=== PATIENT | male | born 1960 | race Caucasian/White ===

== ENCOUNTER → 2018-07-22 | Outpatient (CLI) | payer OTHER | LOC: CAT 07-11 11:33 | DX: I77.810 Thoracic aortic ectasia (principal); D71 Functional disorders of polymorphonuclear neutrophils; I25.10 Atherosclerotic heart disease of native coronary artery without angina pectoris; N28.89 Other specified disorders of kidney and ureter; M47.815 Spondylosis without myelopathy or radiculopathy, thoracolumbar region; R04.2 Hemoptysis ==

== ENCOUNTER → 2018-07-31 | Outpatient (CLI) | payer OTHER ==
--- NOTE | ~2018-07-31 | 2DMMODE ---
[facility] [employer] ([employer] [place] [address] 2 D/M-MODE ECHOCARDIOGRAM Name: OG RUIZ Room #: REG [facility]#: [id number] Admission: 07/31/18 Attend Phys: Pablo Bray MD Discharge: Date of : 62 Date of Service: 07/31/18 1551 Report #: [id number] THIS REPORT FOR: //name// APPROVED REPORT Study performed: 07/31/2018 15:00:13 EXAM: Comprehensive 2D, Doppler, and color-flow Echocardiogram Patient Location: Out-Patient Status: routine BSA: 1.85 HR: 69 bpm BP: 136/80 mmHg Rhythm: NSR Other Information Study Quality: Adequate Indications Pulmonary embolism, short of breath. Hx: A-fib, COPD, HTN, current tobacco abuse. 2D Dimensions RVDd: 40.27 mm IVSd: 9.59 (7-11mm) LVOT Diam: 21.25 (18-24mm) LVDd: 46.30 mm PWd: 9.87 (7-11mm) LVDs: 33.25 (25-40mm) Aortic Root: 36.06 mm Volumes Left Atrial Volume (Systole) Single Plane 4CH: 37.89 mL Single Plane 2CH: 48.53 mL LA ESV Index: 25.00 mL/m2 Aortic Valve AoV Peak Caio.: 1.19 m/s AO Peak Gr.: 5.62 mmHg LVOT Max P.09 mmHg LVOT Max V: 1.13 m/s MARY BETH Vmax: 3.37 cm2 Mitral Valve E/A Ratio: 0.9 MV Decel. Time: 277.79 ms [facility] [address] [place] [address] 2 D/M-MODE ECHOCARDIOGRAM Name: OG RUIZ Room #: REG [facility]#: [id number] Admission: 07/31/18 Attend Phys: Pablo Bray MD Discharge: Date of : 62 Date of Service: 07/31/18 1551 Report #: [id number] MV E Max Caio.: 0.54 m/s MV A Caio.: 0.58 m/s MV PHT: 80.56 ms IVRT: 83.04 ms Pulmonary Valve PV Peak Caio.: 0.90 m/s PV Peak Gr.: 3.27 mmHg Pulmonary Vein P Vein S: 0.74 m/s P Vein D: 0.34 m/s P Vein S/D Ratio: 2.18 Tricuspid Valve TR Peak Caio.: 2.74 m/s RAP Estimate: 5.00 mmHg TR Peak Gr.: 30.07 mmHg PA Pressure: 35.00 mmHg Left Ventricle The left ventricle is normal size. There is normal LV segmental wall motion. There is normal left ventricular wall thickness. Left ventricular systolic function is normal. LVEF is 55%. Mild diastolic dysfunction is present (impaired relaxation pattern). Right Ventricle The right ventricle is normal size. The right ventricular systolic function is normal. Atria The left atrium size is normal. The right atrium size is normal. Aortic Valve The aortic valve is normal in structure. Trace aortic regurgitation. There is no aortic valvular stenosis. Mitral Valve The mitral valve is normal in structure. Mild mitral regurgitation. No evidence of mitral valve stenosis. Tricuspid Valve The tricuspid valve is normal in structure. Mild tricuspid regurgitation. Estimated PAP is 35mmHg. Pulmonic Valve Pulmonic valve is not well visualized. Trace pulmonic [facility] [address] [place] [address] 2 D/M-MODE ECHOCARDIOGRAM Name: OG RUIZ Room #: REG [facility]#: [id number] Admission: 07/31/18 Attend Phys: Pablo Bray MD Discharge: Date of : 62 Date of Service: 07/31/18 1551 Report #: [id number] regurgitation. Great Vessels The aortic root is normal in size. Ascending aorta is not well visualized. IVC is normal in size and collapses >50% with inspiration. Pericardium There is no pericardial effusion. <Conclusion> The left ventricle is normal size. LVEF is 55%. The aortic valve is normal in structure. Trace aortic regurgitation. The mitral valve is normal in structure. Mild mitral regurgitation. The tricuspid valve is normal in structure. Mild tricuspid regurgitation. Estimated PAP is 35mmHg. Pulmonic valve is not well visualized. Trace pulmonic regurgitation. There is no pericardial effusion. Ascending aorta is not well visualized. <ELECTRONICALLY SIGNED> By: Emanuel Levy MD 07/31/18 [phone] Emanuel Levy MD /INF
== END ==
LOC: CV 08:01
DX: I08.1 Rheumatic disorders of both mitral and tricuspid valves (principal); I82.411 Acute embolism and thrombosis of right femoral vein; I48.91 Unspecified atrial fibrillation; J44.9 Chronic obstructive pulmonary disease, unspecified; I10 Essential (primary) hypertension; R91.1 Solitary pulmonary nodule; F17.200 Nicotine dependence, unspecified, uncomplicated

== ENCOUNTER → 2018-08-12 | Outpatient (CLI) | payer OTHER | LOC: CAT 15:01 | DX: J98.4 Other disorders of lung (principal); R91.1 Solitary pulmonary nodule ==

== ENCOUNTER → 2018-08-16 | Outpatient (CLI) | payer OTHER | LOC: MRI 06:55 | DX: D68.9 Coagulation defect, unspecified (principal); R51 Headache ==

== ENCOUNTER → 2018-10-01 | Outpatient (CLI) | payer OTHER | LOC: CAT 11:58 | DX: J44.9 Chronic obstructive pulmonary disease, unspecified (principal); I25.10 Atherosclerotic heart disease of native coronary artery without angina pectoris; R59.9 Enlarged lymph nodes, unspecified; K76.0 Fatty (change of) liver, not elsewhere classified; L92.8 Other granulomatous disorders of the skin and subcutaneous tissue; I26.99 Other pulmonary embolism without acute cor pulmonale ==

== ENCOUNTER 2018-12-14 15:31 | Emergency (ER) | payer OTHER ==
[~2018-12-14] VITALS: Ht 175.3 cm; Wt 72.6 kg
[2018-12-14 16:19] LABS: HEMOGLOBIN 18.4 gm/dL (14.0-18.0); MCH 35.3 pg (26.0-34.0); MCHC 34.7 g/dL (28.0-37.0); MCV 101.7 fL (80.0-100.0); RBC 5.21 mil/uL (4.50-6.00); RDW 13.9 % (10.5-14.5); WBC 12.7 thou/uL (4.0-11.0)
[2018-12-14 16:25] LABS: ANION GAP 10 mmol/L (7-16); BUN 7 mg/dL (7-18); CALCIUM 9.9 mg/dL (8.5-10.1); CHLORIDE 102 mmol/L (98-107); CO2 28 mmol/L (21-32); CREATININE 1.1 mg/dL (0.7-1.3); GLUCOSE 136 mg/dL (74-106); POTASSIUM 4.3 mmol/L (3.5-5.1); SODIUM 140 mmol/L (136-145)
[2018-12-14 16:34] LABS: TROPONIN-I <0.06 ng/mL (<0.06)
[2018-12-14 19:10] VITALS: BP 169/99
--- NOTE | 2018-12-15 10:34 | EKG ---
[place] [address] [facility] [place] [address] ELECTROCARDIOGRAM REPORT Name: OG RUIZ [id number] ������������������ Admission: 12/14/18 ������������������ Attend Phys: Discharge: 12/14/18 ������������������ Date of : 62 Report #: [id number] ����������������������������������������������������������������� [id number] THIS REPORT FOR: //name// [facility] ED Test Date: 2018-12-14 Test Time: 16:05:03 Pat Name: OG RUIZ Department: Room: Gender: M Trades Helper: : 1960 Requested By: Sukhdeep Farmer Order Number: [id number] MD: Josué Alvarez Measurements Intervals [place] Rate: 89 P: 58 HI: 150 QRS: -37 QRSD: 90 T: 36 QT: 386 QTc: 470 Interpretive Statements Sinus rhythm Probable left atrial enlargement Left axis deviation Compared to ECG 03/02/2009 12:37:17 Left-axis deviation now present Electronically Signed On 12-15-2018 10:34:14 CDT by Josué Alvarez [email or web address] ��������������������������������������������� <ELECTRONICALLY SIGNED> ���������������������������������������� By: Josué Alvarez MD ��������������������������������������������� 12/15/18 1034 1605 1605 MD MAEVE Christianson
== END 2018-12-14 19:10 | disposition short-term general hospital (02) ==
LOC: ER 15:31
PROVIDERS: Emergency Medicine
DX: S06.5X0A Traumatic subdural hemorrhage without loss of consciousness, initial encounter (principal); M79.632 Pain in left forearm; I48.91 Unspecified atrial fibrillation; F17.210 Nicotine dependence, cigarettes, uncomplicated; Z79.01 Long term (current) use of anticoagulants; W18.30XA Fall on same level, unspecified, initial encounter; Y93.89 Activity, other specified; Y92.89 Other specified places as the place of occurrence of the external cause; Y99.8 Other external cause status

== ENCOUNTER → 2019-01-27 | Outpatient (CLI) | payer OTHER | LOC: MRI 10:42 | DX: S06.9X9D Unspecified intracranial injury with loss of consciousness of unspecified duration, subsequent encounter (principal); I67.82 Cerebral ischemia; I25.10 Atherosclerotic heart disease of native coronary artery without angina pectoris; R91.1 Solitary pulmonary nodule; J98.4 Other disorders of lung; K86.89 Other specified diseases of pancreas; K31.89 Other diseases of stomach and duodenum; X58.XXXD Exposure to other specified factors, subsequent encounter ==

== ENCOUNTER → 2019-06-02 | Outpatient (CLI) | payer OTHER ==
[2019-06-02 12:58] LABS: CALCIUM 9.3 mg/dL (8.5-10.1); CREATININE 0.9 mg/dL (0.7-1.3); POTASSIUM 3.9 mmol/L (3.5-5.1)
== END ==
LOC: ULTRA 10:45 → CAT 10:45 → RAD 10:45
PROVIDERS: Internal Medicine Pulmonary Disease
DX: J43.9 Emphysema, unspecified (principal); I25.10 Atherosclerotic heart disease of native coronary artery without angina pectoris; M79.605 Pain in left leg; I77.810 Thoracic aortic ectasia; N20.0 Calculus of kidney; J98.4 Other disorders of lung; D73.89 Other diseases of spleen

== ENCOUNTER 2019-09-10 18:28 | Inpatient (IN) | payer OTHER ==
[~2019-09-10] VITALS: Ht 177.8 cm; Wt 72.6 kg
--- NOTE | ~2019-09-10 | HC ---
[facility] [place] [address] CONSULTATION Name: OG RUIZ Room #: 352-P [facility] IN M.R.#: [id number] Admission: 09/10/19 Attend Phys: Ivan Baldwin MD Discharge: 09/11/19 Date of : 62 Report #: [id number] THIS REPORT FOR: //name// CC: Ivan Holley DATE OF SERVICE: 09/11/2019 IDENTIFYING INFORMATION: A 59-year-old male. HISTORY OF PRESENT ILLNESS: The patient was admitted with some severe abdominal pain. It appears he may be awaiting transfer to [facility] for vascular procedure. He has a superior mesenteric artery thrombosis. He is quite uncomfortable. He does acknowledge some alcohol use on Sunday. It appears there has been some abuse misuse at times, but he is not alcohol dependent. He is hopeful to stop using alcohol. He has been depressed, having gone through a traumatic brain injury and also suffered loss of multiple family members over the last couple of years. Some of these deaths have been unexpected. The patient notes that his mood, anxiety, energy, and motivation have all been affected, but he has not felt suicidal. PAST PSYCHIATRIC HISTORY: The current episode encompasses multiple losses of family members and recovery from a traumatic brain injury. Prior to this, it does not seem he suffered from depression or anxiety. He was recently started on alprazolam and citalopram by his primary care physician, but his points out "he really does not like taking medications." SUBSTANCE USE HISTORY: He is on Ativan detox, but he tells me he did not last drink since Sunday. Seems there is some alcohol use disorder and alcohol abuse, especially with respect to self-medication for depression, anxiety and stress, but he is not currently alcohol dependent. ALLERGIES: No known medication allergies. PAST MEDICAL HISTORY: Superior mesenteric artery thrombosis, traumatic brain injury. He recovered from this enough to return to work. SOCIAL HISTORY: He is , but has only been a year or so, but had been dating longer than that and she has been a close friend of his for a few decades. CURRENT MEDICATIONS: Include heparin, thiamine, vitamin, Ativan detox. MENTAL STATUS EXAM: male, casually dressed. Depressed mood. Restricted affect, decreased speech. No suicidal ideation, no homicidal ideation, no hallucinations, no delusions. Insight and judgment fair. [facility] [address] [place] [address] CONSULTATION Name: OG RUIZ Room #: 352-P [facility] IN M.R.#: [id number] Admission: 09/10/19 Attend Phys: Ivan Baldwin MD Discharge: 09/11/19 Date of : 62 Report #: [id number] DIAGNOSES: Major depressive disorder, single episode, severe alcohol use disorder. RECOMMENDATIONS: The patient will benefit from resuming antidepressants. I did recommend that a low dose of benzodiazepine can be quite useful for peak levels of anxiety and can give him relief. Since he is not able to take p.o., lorazepam makes good sense for anxiety, though blood alcohol level was not recorded upon admission and if he really has not drank since Sunday, it is unlikely he will actually have any withdrawals. Provide supportive therapy and education. I have given them my business card and note that he may benefit from seeing a therapist in my new office, [facility], but I would be happy to help with medication management if necessary. By: 1312 [id number] Ty Gutierrez MD /nt
[2019-09-10 18:52] VITALS: BP 187/143
[2019-09-10 19:27] LABS: CALCIUM 8.6 mg/dL (8.5-10.1); CREATININE 1.5 mg/dL (0.7-1.3); POTASSIUM 3.6 mmol/L (3.5-5.1)
[2019-09-10 19:33] LABS: HEMOGLOBIN 20.1 gm/dL (14.0-18.0)
[2019-09-10 19:35] LABS: ABSOLUTE NEUTROPHILS 15.7 thou/uL (1.4-8.2); BASOPHILS 0.2 % (0.0-2.0); HEMATOCRIT 59.6 % (42.0-52.0); LYMPHOCYTES 6.2 % (24.0-44.0); MCH 35.7 pg (26.0-34.0); MCHC 33.7 g/dL (28.0-37.0); MCV 105.9 fL (80.0-100.0); MONOCYTES 3.5 % (1.0-8.0); PLATELET COUNT 234 thou/uL (150-400); POLYS 90.1 % (36.0-66.0); RBC 5.63 mil/uL (4.50-6.00); RDW 14.3 % (10.5-14.5); WBC 17.4 thou/uL (4.0-11.0)
[2019-09-10 19:38] LABS: ALBUMIN 3.7 g/dL (3.4-5.0); TOTAL BILIRUBIN 1.9 mg/dL (<0.1-1.0); TOTAL PROTEIN 6.7 g/dL (6.4-8.2); TROPONIN-I 0.11 ng/mL (<0.06)
[2019-09-10 19:51] LABS: APTT 25.7 Seconds (24.5-32.8); INR 1.3; PROTIME 13.2 Seconds (9.3-11.4)
[2019-09-10 19:52] LABS: MAGNESIUM 1.5 mg/dL (1.8-2.4)
[2019-09-10 20:34] LABS: PHOSPHORUS 1.6 mg/dL (2.5-4.9)
[2019-09-10 20:54] LABS: URINE BILIRUBIN NEGATIVE (Negative); URINE BLOOD TRACE (Negative); URINE CLARITY CLEAR; URINE COLOR YELLOW; URINE GLUCOSE-RANDOM* NEGATIVE (Negative); URINE KETONES 3+ (Negative); URINE LEUKOCYTES NEGATIVE (Negative); URINE NITRITE NEGATIVE (Negative); URINE PROTEIN (DIPSTICK) NEGATIVE (Negative); URINE UROBILINOGEN 0.2 E.U./dl (0.2-1.0)
[2019-09-10 21:04] VITALS: BP 175/118
[2019-09-10 21:16] VITALS: BP 175/118
[2019-09-10 21:30] VITALS: BP 169/93
[2019-09-10 22:10] VITALS: BP 173/115
[2019-09-10] MEDS ORDERED: CELEXA20 MG PO (22:29)
[2019-09-10] MEDS ORDERED: LISINOPRIL PO (22:31)
[2019-09-10] MEDS ORDERED: TOPROL XL25 MG PO (22:32)
[2019-09-10] MEDS ORDERED: XANAX 0.5 MG0.5 MG PO (22:33)
[2019-09-10] MEDS ORDERED: ADVIL200 M1 PO (22:41)
[2019-09-10 23:00] VITALS: BP 179/112
--- NOTE | 2019-09-10 23:43 | NUR ---
ADMIT FROM ED. PT REPORTS SINCE 09/09 2299 HE HAS HAD ABD PAIN N/V/D. EMESIS WAS REPORTED TO BE DARK BROWN. PT STATED TODAY HIS CAME HOME FROM WORK HE ASKED HER TO CALL 911, HE WAS HAVING WEAKNESS AND TINGLING IN BOTH ARMS AND HIS HANDS WERE DEANNA. PT STATED HE THOUGHT HE WAS HAVING A STROKE. 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 PT REPORTS LAST DRINK TWO DAYS AGO. PT HAS BEEN TAKING 200 TO 400MGS OF IBUPROFEN FOR ABD PAIN, HE ALSO HAS PRN XANAX UP TO 3XS A DAY FOR ANXIETY. PT STATED HE HAS BEEN HAVING HEADACHES AND LEFT EAR PAIN AND HIS DR THOUGHT IT WAS ANXIETY RELATED. IN ED PT RECEIVED 2L OF NS, A BANANA BAG, THIAMINE AND MAGNESIUM IV. PROTONIX AND CARDIZEM DRIP STARTED. PT HAD TOW 20MG CARDIZEM BOLUSES. HR IN ED 160, SBP 180S AND DBP 140S. AT BEDSIDE. PT HAD BM LIQUID WITH CASANDRA BLOOD ON FLOOR, URINE YELLOW AND CLEAR. CIWA SCORED AND PRN ATIVAN GIVEN. PT REPORTED ABD PAIN CRAMPING 6 AND PRN MS GIVEN, PRN ZOFRAN GIVEN FOR NAUSEA. MANAGER CREATIVE VISITED WITH PT. IVF CONTINUE.
[2019-09-11] VITALS (12 sets, daily range): BP systolic 127–176; BP diastolic 82–120
--- NOTE | 2019-09-11 00:10 | NUR ---
CARDIZEM DRIP FROM ED WAS AT 10, HR AT 150 INCREASED CARDIZEM TO 15 AT 2150. HR REMAINS 126 AT 0010 INCREASEING CARDIZEM TO 17.5.
--- NOTE | 2019-09-11 00:58 | NUR ---
HR REMAINS 140 TO 150 DEWER NOTIFIED. CARDIZEM BOLUS ORDERED.
[2019-09-11 02:40] LABS: HEMATOCRIT 53.3 % (42.0-52.0); MCH 35.1 pg (26.0-34.0); MCHC 33.1 g/dL (28.0-37.0); MCV 106.2 fL (80.0-100.0); RBC 5.02 mil/uL (4.50-6.00); RDW 14.2 % (10.5-14.5); WBC 18.2 thou/uL (4.0-11.0)
[2019-09-11 02:45] LABS: HEMOGLOBIN 17.6 gm/dL (14.0-18.0)
[2019-09-11 02:55] LABS: ALBUMIN 3.6 g/dL (3.4-5.0); ANION GAP 14 mmol/L (7-16); BUN 10 mg/dL (7-18); CHLORIDE 104 mmol/L (98-107); CO2 23 mmol/L (21-32); GLUCOSE 203 mg/dL (74-106); MAGNESIUM 1.8 mg/dL (1.8-2.4); POTASSIUM 3.2 mmol/L (3.5-5.1); SGOT 30 U/L (15-37); SGPT 23 U/L (30-65); SODIUM 141 mmol/L (136-145); TOTAL BILIRUBIN 1.3 mg/dL (<0.1-1.0); TOTAL PROTEIN 6.3 g/dL (6.4-8.2); TROPONIN-I <0.06 ng/mL (<0.06)
--- NOTE | 2019-09-11 03:19 | NUR ---
0200 CARDIZEM INCREASED TO 20, PRN ZOFRAN, MORPHINE, ATIVAN GIVEN. HR REMAINS 150. PROCEDURE TECH NOTIFIED AND LOPRESSOR IV X 1 ORDERED.
--- NOTE | 2019-09-11 05:12 | NUR ---
HR REMAINING UPPER 90S AFTER IV LOPRESSOR. CARDIZEM DECREASED TO 15.
--- NOTE | 2019-09-11 06:18 | NUR ---
HR REMAINING UNDER 90, CARDIZEM DECREASED TO 10
[2019-09-11 06:21] LABS: DIRECT BILIRUBIN 0.3 mg/dL (<0.1-0.2); TOTAL BILIRUBIN 1.2 mg/dL (<0.1-1.0)
--- NOTE | 2019-09-11 06:52 | NUR ---
DR CORRAL RETURNED CONSULT CALL. ESCALATOR ATTENDANT NOTIFIED OF LACTIC ACID CRITICAL FROM LAST NIGHTS DRAW, ORDER TO REPEAT DRAW IN 4HOURS.
[2019-09-11 09:57] LABS: AMP/METHAMP Negative (Negative); BARBITURATES Negative (Negative); BENZODIAZEPINES Negative (Negative); COCAINE Negative (Negative); METHADONE Negative (Negative); OPIATES Negative (Negative); PCP Negative (Negative)
[2019-09-11 12:06] LABS: HEMATOCRIT 50.1 % (42.0-52.0); HEMOGLOBIN 16.8 gm/dL (14.0-18.0); MCH 35.6 pg (26.0-34.0); MCHC 33.5 g/dL (28.0-37.0); MCV 106.2 fL (80.0-100.0); RBC 4.72 mil/uL (4.50-6.00); RDW 14.3 % (10.5-14.5); WBC 18.2 thou/uL (4.0-11.0)
[2019-09-11 12:16] LABS: INR 1.2
--- NOTE | 2019-09-11 12:24 | NUR ---
STEVIE notified that pt needs emergent transfer to [facility] for vascular surgery services. Pt needs emergent thrombectomy for SMA clot. STEVIE spoke with [facility] Transfer Center at 1200 to initiate transfer. Clinical and demographic info provided to shingles roofer. Contact info for attending physician provided. Requested clinical info faxed to [facility] and radiology images uploaded to the [place] [facility] for [facility] to review. [facility] form faxed. Awaiting physician to physician report. [facility] form and EMTALA form placed on pt's chart. Chart copied. STEVIE is following to assist with coordination of transfer.
--- NOTE | 2019-09-11 12:27 | NUR ---
EMERGENT TRANSFER TO [facility] PER ATTENDING REQUEST. VASCULAR SURGERY SERVICES NEEDED FOR EMERGENT THROMBECTOMEY, CLOT RETRIEVAL. [facility] FORM COMPLETED AND FAXED. CHART COPY COMPLETED PER DIRECTOR HEALTH. RADIOLOGY FILMS CLOUDED TO [facility]. PATIENT CLINICALS FAXED TO TRANSFER TEAM, VERIFIED RECEIVED. UNIT SW NOTIFIED [facility] TRANSFER TEAM. AWAITING RESPONSE.
--- NOTE | 2019-09-11 12:37 | NUR ---
PT BACK ON THE FLOOR, HEPARIN IV DRIP STARTED PER ORDER. LABS DRAWN. PT DENIES ANY NEEDS. Vital signs and assessment completed.
--- NOTE | 2019-09-11 12:41 | 2DMMODE ---
[facility] [employer] [place] [address] 2 D/M-MODE ECHOCARDIOGRAM Name: OG RUIZ Room #: 352-P ADM IN .R.#: [id number] Admission: 09/10/19 Attend Phys: Ivan Baldwin MD Discharge: Date of : 62 Report #: [id number] THIS REPORT FOR: //name// APPROVED REPORT Study performed: 09/11/2019 10:47:36 EXAM: Comprehensive 2D, Doppler, and color-flow Echocardiogram Patient Location: Echo lab Room #: 352 BSA: 1.90 HR: 108 bpm BP: 140/80 mmHg Rhythm: Atrial Fibrillation Other Information Study Quality: Adequate Indications Atrial Fibrillation Hypertension/HDD 2D Dimensions RVDd: 34.97 mm IVSd: 13.16 (7-11mm) LVOT Diam: 21.05 (18-24mm) LVDd: 39.91 mm PWd: 12.05 (7-11mm) Ascending Ao: 32.57 (22-36mm) LVDs: 26.41 (25-40mm) Aortic Root: 37.03 mm IVC: 18.00 mm Volumes Left Atrial Volume (Systole) Single Plane 4CH: 58.54 mL Single Plane 2CH: 67.80 mL LA ESV Index: 39.00 mL/m2 Aortic Valve AoV Peak Caio.: 1.30 m/s AO Peak Gr.: 6.81 mmHg LVOT Max P.83 mmHg LVOT Max V: 0.94 m/s MARY BETH Vmax: 2.50 cm2 Mitral Valve MV Decel. Time: 194.19 ms MV E Max Caio.: 0.85 m/s [facility] [address] [place] [address] 2 D/M-MODE ECHOCARDIOGRAM Name: OG RUIZ Room #: 352-P [facility]#: [id number] Admission: 09/10/19 Attend Phys: Ivan Baldwin MD Discharge: Date of : 62 Report #: [id number] IVRT: 65.74 ms Pulmonary Valve PV Peak Caio.: 0.76 m/s PV Peak Gr.: 2.31 mmHg Tricuspid Valve TR Peak Caio.: 2.83 m/s RAP Estimate: 10.00 mmHg TR Peak Gr.: 24.91 mmHg PA Pressure: 35.00 mmHg Left Ventricle The left ventricle is normal size. Mild concentric left ventricular hypertrophy. The left ventricular systolic function is normal. The left ventricular ejection fraction is within the normal range. LVEF is 60%. This study is not technically sufficient to allow evaluation of the LV diastolic function due to atrial fibrillation. Right Ventricle The right ventricle is normal size. The right ventricular systolic function is normal. Atria Left atrium is mildly dilated. Right atrium is mildly dilated. Aortic Valve The aortic valve is normal in structure. No aortic regurgitation is present. There is no aortic valvular stenosis. Mitral Valve The mitral valve is normal in structure. Mild mitral regurgitation. No evidence of mitral valve stenosis. Tricuspid Valve The tricuspid valve is normal in structure. Moderate tricuspid regurgitation. PAP 35mmHg. Pulmonic Valve The pulmonary valve is normal in structure. There is no pulmonic valvular regurgitation. Great Vessels The aortic root is normal in size. IVC is normal in size and collapses <50% with inspiration. Pericardium [facility] [place] [address] 2 D/M-MODE ECHOCARDIOGRAM Name: LIBORIOGYPSYOG NAVA Room #: 352-P ADM IN M.R.#: [id number] Admission: 09/10/19 Attend Phys: Ivan Baldwin MD Discharge: Date of : 62 Report #: [id number] There is no pericardial effusion. <Conclusion> The left ventricle is normal size. LVEF is 60%. Left atrium is mildly dilated. Right atrium is mildly dilated. The aortic valve is normal in structure. The mitral valve is normal in structure. Mild mitral regurgitation. The tricuspid valve is normal in structure. Moderate tricuspid regurgitation. PAP 35mmHg. The pulmonary valve is normal in structure. There is no pericardial effusion. <ELECTRONICALLY SIGNED> By: Emanuel Levy MD 09/11/19 1240 1240 1240 Emanuel Levy MD /INF
--- NOTE | 2019-09-11 14:14 | NUR ---
REPORT GIVEN TO ALEXYS KELSEY IN [facility], ICU. PT BELONGINGS PACKED. PT GOING WITH CARIZEM DRIP, HEPARIN AND PROTONIX DRIP. Report given to EMS AND PT PAPER WORK. PT SIGNIFICANT OTHER IS WITH PT.
--- NOTE | 2019-09-11 17:21 | EKG ---
[address] [address] ELECTROCARDIOGRAM REPORT Name: LIBORIOSAVANNAHYeniferOG BRANDY Room #: 352-P [facility] IN M.R.#: [id number] Admission: 09/10/19 Attend Phys: Ivan Baldwin MD Discharge: 09/11/19 Date of : 62 Report #: [id number] THIS REPORT FOR: //name// [facility] ED Test Date: 2019-09-10 Test Time: 18:34:09 Pat Name: OG RUIZ Department: Room: [facility] Gender: M Management Trainee Marketing: manish : 1960 Requested By: Byron Ravi Order Number: [id number] MD: Bradford Harry Measurements Intervals [place] Rate: 148 P: AK: QRS: 210 QRSD: 87 T: 15 QT: 329 QTc: 517 Interpretive Statements Atrial fibrillation Minimal ST depression, anterolateral leads Compared to ECG 12/14/2018 16:05:03 ST (T wave) deviation now present Sinus rhythm no longer present Left-axis deviation no longer present Electronically Signed On 09-11-2019 17:21:00 LEATHER HEEL BREASTER by Bradford Harry [email or web address] <ELECTRONICALLY SIGNED> By: Bradford Harry MD 09/11/19 1721 1834 1834 Bradford Harry MD /EPI
--- NOTE | 2019-09-12 10:30 | NUR ---
STEVIE placed call to [facility] ER to try to find the 4 IV pumps that went with pt in emergent transfer on 09/11. STEVIE spoke with ER staff. Left contact info for STEVIE for call back. No call back at this time. [facility] centrifugal operator, who is unaware if pumps were returned. STEVIE also spoke with unit. Per unit, IV pumps had not been return. STEVIE updated Director of Case Mgmt. STEVIE is following to assist as needed.
== END 2019-09-11 13:39 | disposition short-term general hospital (02) | DRG 394 ==
LOC: ER 18:28 → 3W 20:13 → EROBS 20:13 → 3W 21:16
PROVIDERS: Emergency Medicine; Internal Medicine Gastroenterology; Nurse Practitioner Family; Surgery; ADMIT Hospitalist
DX: K55.059 Acute (reversible) ischemia of intestine, part and extent unspecified (principal); N17.9 Acute kidney failure, unspecified; F32.2 Major depressive disorder, single episode, severe without psychotic features; K92.2 Gastrointestinal hemorrhage, unspecified; I48.0 Paroxysmal atrial fibrillation; E83.42 Hypomagnesemia; E80.6 Other disorders of bilirubin metabolism; D72.829 Elevated white blood cell count, unspecified; D75.1 Secondary polycythemia; F17.210 Nicotine dependence, cigarettes, uncomplicated; F41.9 Anxiety disorder, unspecified; G43.909 Migraine, unspecified, not intractable, without status migrainosus; E86.0 Dehydration; I10 Essential (primary) hypertension; R26.9 Unspecified abnormalities of gait and mobility; F10.10 Alcohol abuse, uncomplicated; Z86.711 Personal history of pulmonary embolism; Z86.73 Personal history of transient ischemic attack (TIA), and cerebral infarction without residual deficits; Z86.2 Personal history of diseases of the blood and blood-forming organs and certain disorders involving the immune mechanism; Z86.718 Personal history of other venous thrombosis and embolism; Z90.49 Acquired absence of other specified parts of digestive tract; Z79.899 Other long term (current) drug therapy; Z82.49 Family history of ischemic heart disease and other diseases of the circulatory system; Z83.2 Family history of diseases of the blood and blood-forming organs and certain disorders involving the immune mechanism; Z80.8 Family history of malignant neoplasm of other organs or systems; Z79.01 Long term (current) use of anticoagulants
CPT/HCPCS: 10879